=== PATIENT | female | born 1970 | race Two or more races ===

== ENCOUNTER 2018-04-11 18:16 | Emergency (ER) | payer BC, SELFPAY ==
[~2018-04-11] VITALS: Ht 152.4 cm; Wt 74.0 kg
[2018-04-11 19:11] LABS: BASOPHILS # (AUTO) 0.04 x10^3/uL (0-0.1); BASOPHILS % (AUTO) 0 % (0-1); EOSINOPHILS # (AUTO) 0.21 x10^3/uL (0-0.4); EOSINOPHILS % (AUTO) 2 % (1-7); LYMPHOCYTES # (AUTO) 2.88 x10^3/uL (1-3.4); LYMPHOCYTES % (AUTO) 29 % (22-44); MD NO; MEAN CORPUSCULAR HEMOGLOBIN 26.8 pg (27.0-34.8); MEAN CORPUSCULAR HGB CONC 32.3 g/dL (32.4-35.8); MEAN CORPUSCULAR VOLUME 82.9 fL (80-100); MEAN PLATELET VOLUME 8.1 fL (7.4-10.4); MONOCYTES # (AUTO) 0.73 x10^3/uL (0.2-0.8); MONOCYTES % (AUTO) 8 % (2-9); NEUTROPHILS # (AUTO) 5.94 x10^3/uL (1.8-6.8); NEUTROPHILS % (AUTO) 61 % (42-75); PLATELET COUNT 413 x10^3/uL (130-400); RED BLOOD COUNT 5.06 x10^6/uL (3.82-5.3); RED CELL DISTRIBUTION WIDTH 16.6 % (9.6-15.2)
[2018-04-11 19:12] LABS: HCG UR SG 1.026 (1.003-1.030); MICROSCOPIC AUTO
[2018-04-11 19:14] LABS: CULTURE INDICATED? YES
[2018-04-11 19:19] LABS: ALANINE AMINOTRANSFERASE 25 U/L (12-78); ALBUMIN 3.5 g/dL (3.4-5.0); ANION GAP 7 mmol/L (5-15); CALCIUM 8.8 mg/dL (8.5-10.1); CHLORIDE 106 mmol/L (98-107); CREATININE 0.75 mg/dL (0.55-1.02)
[2018-04-11 19:21] LABS: ALKALINE PHOSPHATASE 147 U/L (45-117); BILIRUBIN,TOTAL 0.3 mg/dL (0.2-1.0); TOTAL PROTEIN 8.1 g/dL (6.4-8.2)
[2018-04-11 20:52] VITALS: BP 161/79
== END 2018-04-11 20:53 | disposition home or self-care (01) ==
LOC: ED 19:37
DX: K29.70 Gastritis, unspecified, without bleeding (principal); N30.90 Cystitis, unspecified without hematuria; R51 Headache
CPT/HCPCS: 36415; 76700; 80053; 81001; 81025; 83690; 85025; 87086; 99285

== ENCOUNTER 2018-05-15 19:15 | Emergency (ER) | payer BC ==
[~2018-05-15] VITALS: Ht 152.4 cm; Wt 76.0 kg
[2018-05-15 19:24] VITALS: BP 175/94
[2018-05-15] MEDS ORDERED: OMEP-110 PO (19:54)
[2018-05-15] MEDS ORDERED: ONDA4TAB10 PO (19:54)
[2018-05-15] MEDS ORDERED: SUCR1TAB PO (19:54)
[2018-05-15 20:03] LABS: BASOPHILS # (AUTO) 0.04 x10^3/uL (0-0.1); BASOPHILS % (AUTO) 0 % (0-1); EOSINOPHILS # (AUTO) 0.23 x10^3/uL (0-0.4); EOSINOPHILS % (AUTO) 2 % (1-7); LYMPHOCYTES % (AUTO) 24 % (22-44); MD NO; MEAN CORPUSCULAR HEMOGLOBIN 27.4 pg (27.0-34.8); MEAN CORPUSCULAR HGB CONC 33.3 g/dL (32.4-35.8); MEAN CORPUSCULAR VOLUME 82.3 fL (80-100); MEAN PLATELET VOLUME 7.9 fL (7.4-10.4); MONOCYTES # (AUTO) 0.82 x10^3/uL (0.2-0.8); MONOCYTES % (AUTO) 8 % (2-9); NEUTROPHILS # (AUTO) 7.12 x10^3/uL (1.8-6.8); NEUTROPHILS % (AUTO) 66 % (42-75); PLATELET COUNT 400 x10^3/uL (130-400); RED BLOOD COUNT 4.79 x10^6/uL (3.82-5.3); RED CELL DISTRIBUTION WIDTH 17.2 % (9.6-15.2)
[2018-05-15 20:10] LABS: MICROSCOPIC AUTO
[2018-05-15] MEDS ORDERED: KETOROLAC 30 MG/1 ML ONE (20:10)
[2018-05-15 20:13] LABS: ALANINE AMINOTRANSFERASE 25 U/L (12-78); ALBUMIN 3.5 g/dL (3.4-5.0); ANION GAP 6 mmol/L (5-15); CALCIUM 8.6 mg/dL (8.5-10.1); CHLORIDE 106 mmol/L (98-107)
[2018-05-15 20:15] LABS: ALKALINE PHOSPHATASE 148 U/L (45-117); BILIRUBIN,TOTAL 0.2 mg/dL (0.2-1.0)
[2018-05-15 20:19] LABS: CULTURE INDICATED? NO
[2018-05-15] MEDS ORDERED: KETOROLAC 30 MG/1 ML IM ONE (20:30)
== END 2018-05-15 21:12 | disposition home or self-care (01) ==
LOC: ED 21:06
DX: R10.811 Right upper quadrant abdominal tenderness (principal); R10.813 Right lower quadrant abdominal tenderness; R11.0 Nausea
CPT/HCPCS: 36415; 74176; 80053; 81001; 83690; 85025; 96372; 99285; J1885

== ENCOUNTER → 2018-05-31 | Outpatient (CLI) | payer BC ==
[~2018-05-31] MED LIST: OMEP-110 PO; ONDA4TAB10 PO; SINCALIDE (KINEVAC) 5 MCG ONE; SUCR1TAB PO
== END | disposition home or self-care (01) ==
LOC: RAD 09:38
PROVIDERS: ATTEND Internal Medicine Gastroenterology
DX: R10.11 Right upper quadrant pain (principal); R11.2 Nausea with vomiting, unspecified; K59.00 Constipation, unspecified; Z79.1 Long term (current) use of non-steroidal anti-inflammatories (NSAID); Z91.010 Allergy to peanuts; Z91.018 Allergy to other foods; Z91.012 Allergy to eggs
CPT/HCPCS: 78227; A9537; J2805

== ENCOUNTER 2018-07-24 09:53 | Emergency (ER) | payer BC ==
[~2018-07-24] VITALS: Ht 152.4 cm; Wt 76.7 kg
[~2018-07-24 09:53] MED LIST changes: -SINCALIDE (KINEVAC) 5 MCG ONE
[2018-07-24 09:57] VITALS: BP 159/101
[2018-07-24] MEDS ORDERED: CETI10CA PO (10:19)
[2018-07-24] MEDS ORDERED: LACT1CAP35 PO (10:19)
[2018-07-24] MEDS ORDERED: MECLIZINE CHEWABLE 25 MG TAB ONE (10:25)
[2018-07-24] MEDS ORDERED: ONDANSETRON ODT 4 MG ONE ×2 (10:26→12:09)
[2018-07-24] MEDS ORDERED: ONDANSETRON ODT 4 MG PO ONE ×2 (10:30→12:30)
[2018-07-24] MEDS ORDERED: MECLIZINE CHEWABLE 25 MG TAB PO ONE (10:30)
[2018-07-24 10:45] LABS: BASOPHILS # (AUTO) 0.04 x10^3/uL (0-0.1); BASOPHILS % (AUTO) 1 % (0-1); EOSINOPHILS # (AUTO) 0.16 x10^3/uL (0-0.4); EOSINOPHILS % (AUTO) 2 % (1-7); LYMPHOCYTES # (AUTO) 1.56 x10^3/uL (1-3.4); LYMPHOCYTES % (AUTO) 23 % (22-44); MD NO; MEAN CORPUSCULAR HEMOGLOBIN 26.8 pg (27.0-34.8); MEAN CORPUSCULAR HGB CONC 32.9 g/dL (32.4-35.8); MEAN CORPUSCULAR VOLUME 81.7 fL (80-100); MEAN PLATELET VOLUME 7.8 fL (7.4-10.4); MONOCYTES # (AUTO) 0.32 x10^3/uL (0.2-0.8); MONOCYTES % (AUTO) 5 % (2-9); NEUTROPHILS # (AUTO) 4.77 x10^3/uL (1.8-6.8); NEUTROPHILS % (AUTO) 70 % (42-75); PLATELET COUNT 375 x10^3/uL (130-400); RED BLOOD COUNT 4.75 x10^6/uL (3.82-5.3); RED CELL DISTRIBUTION WIDTH 15.9 % (9.6-15.2)
[2018-07-24 10:57] LABS: ALANINE AMINOTRANSFERASE 25 U/L (12-78); ALBUMIN 3.3 g/dL (3.4-5.0); ANION GAP 8 mmol/L (5-15); CALCIUM 7.9 mg/dL (8.5-10.1); CHLORIDE 107 mmol/L (98-107)
[2018-07-24 11:02] LABS: ALKALINE PHOSPHATASE 141 U/L (45-117); BILIRUBIN,TOTAL 0.1 mg/dL (0.2-1.0); CREATININE 0.71 mg/dL (0.55-1.02); TOTAL PROTEIN 7.9 g/dL (6.4-8.2)
[2018-07-24 11:12] LABS: MICROSCOPIC AUTO
[2018-07-24 11:15] LABS: CULTURE INDICATED? YES
== END 2018-07-24 12:03 | disposition home or self-care (01) ==
LOC: ED 10:30
DX: R42 Dizziness and giddiness (principal); K52.9 Noninfective gastroenteritis and colitis, unspecified; K82.9 Disease of gallbladder, unspecified
CPT/HCPCS: 36415; 80053; 81001; 83690; 84703; 85025; 87077; 87086; 93005; 99285; Q0162; 87186

== ENCOUNTER 2018-09-13 07:27 | Day surgery (SDC) | payer BC ==
[~2018-09-13] VITALS: Ht 152.4 cm; Wt 75.9 kg
[~2018-09-13 07:27] MED LIST changes: +BUPIVACAINE/PF-EPI 0.5% 1:200K ONE; +CETI10CA PO; +LACT1CAP35 PO
[2018-09-13 07:48] VITALS: BP 148/89
[2018-09-13] MEDS ORDERED: LACTATED RINGERS 1,000 ML IV SCH ×2 (07:53→10:36)
[2018-09-13] MEDS ORDERED: OMEP-110 PO (07:54)
[2018-09-13] MEDS ORDERED: ACETAMINOPHEN 500 MG TABLET PO STA (07:55)
[2018-09-13] MEDS ORDERED: GABAPENTIN 300 MG CAPSULE PO STA (07:55)
[2018-09-13] MEDS ORDERED: LIDOCAINE-MPF 1%, 2ML INFIL ONE (08:00)
[2018-09-13] MEDS ORDERED: NEOSTIGMINE 1 MG/ML, 10ML ONE (08:35)
[2018-09-13] MEDS ORDERED: MIDAZOLAM 1 MG/ML, 2ML ONE (08:35)
[2018-09-13] MEDS ORDERED: PROPOFOL 10 MG/ML, 20ML ONE (08:35)
[2018-09-13] MEDS ORDERED: FENTANYL PF 250 MCG/5ML ONE (08:35)
[2018-09-13] MEDS ORDERED: ROCURONIUM 10MG/ML,5ML ONE (08:35)
[2018-09-13] MEDS ORDERED: ONDANSETRON 2MG/ML, 2ML ONE (08:35)
[2018-09-13] MEDS ORDERED: GLYCOPYRROLATE 0.2MG/1ML, 5ML ONE (08:35)
[2018-09-13] MEDS ORDERED: DEXAMETHASONE 4 MG/ML, 1ML ONE (08:35)
[2018-09-13 08:40] LABS: HCG UR SG 1.022 (1.003-1.030)
[2018-09-13] MEDS ORDERED: CEFOTETAN PMX 2GM/50ML 50 ML ONE (09:56)
[2018-09-13] MEDS ORDERED: KETOROLAC 30 MG/1 ML ONE ×2 (09:58→10:25)
[2018-09-13] MEDS ORDERED: FENTANYL PF 100 MCG/2ML IV PRN (10:00)
[2018-09-13] MEDS ORDERED: hydrALAzine 20 MG/ML, 1ML IV PRN (10:00)
[2018-09-13] MEDS ORDERED: PROMETHAZINE 12.5 MG SUPP PR PRN (10:00)
[2018-09-13] MEDS ORDERED: LABETALOL 5MG/ML, 20ML IV PRN (10:00)
[2018-09-13] MEDS ORDERED: MEPERIDINE/PF 25MG/0.5ML IVPush PRN (10:00)
[2018-09-13] MEDS ORDERED: OXYcodone 5 MG/5 ML ORAL.SOL UDC PO PRN (10:00)
[2018-09-13] MEDS ORDERED: MORPHINE SULFATE 4 MG/ML, 1ML IVPush PRN (10:00)
[2018-09-13] MEDS ORDERED: ONDANSETRON 2MG/ML, 2ML IV PRN (10:00)
[2018-09-13] MEDS ORDERED: PROMETHAZINE 25 MG/ML, 1ML IV PRN (10:00)
[2018-09-13] MEDS ORDERED: ONDANSETRON ODT 8 MG PO PRN (10:00)
[2018-09-13] MEDS ORDERED: PROMETHAZINE 25 MG/ML, 1ML IM PRN ×2 (10:00)
[2018-09-13] MEDS ORDERED: PROMETHAZINE 25 MG SUPP PR PRN (10:00)
[2018-09-13] MEDS ORDERED: HYDROcodone/APAP 5/325 TABLET PO PRN (11:00)
[2018-09-13] MEDS ORDERED: morphine SULFATE 10 MG/ML, 1ML IVPush PRN (11:00)
[2018-09-13] MEDS ORDERED: ONDANSETRON 2MG/ML, 2ML IVPush PRN (11:00)
[2018-09-13] MEDS ORDERED: SUGAMMADEX 200 MG/2 ML IVPush ONE (11:02)
[2018-09-13] MEDS ORDERED: HYDROmorphone 2 MG/ML, 1ML ONE (11:29)
[2018-09-13] MEDS: HYDROmorphone 1 MG/ML, 1ML IV PRN ×2 (11:31→11:44)
== END 2018-09-13 16:15 | disposition home or self-care (01) ==
LOC: OUT 07:27 → UNDOADMOB 10:36 → ORIP 10:36 → OUT 16:15
PROVIDERS: ATTEND Thoracic Surgery (Cardiothoracic Vascular Surgery)
DX: K80.10 Calculus of gallbladder with chronic cholecystitis without obstruction (principal); Z79.899 Other long term (current) drug therapy; Z90.710 Acquired absence of both cervix and uterus; Z79.1 Long term (current) use of non-steroidal anti-inflammatories (NSAID); Z98.890 Other specified postprocedural states
CPT/HCPCS: 47562; 81025; 88304; J1100; J1170; J1885; J2250; J2405; J2704; J2710; J3010; J3490; J7120

== ENCOUNTER 2019-02-22 12:02 | Outpatient (CLI) | payer BC ==
[~2019-02-22 12:02] MED LIST changes: -BUPIVACAINE/PF-EPI 0.5% 1:200K ONE
== END 2019-02-22 23:59 | disposition home or self-care (01) ==
LOC: STAR 12:02
PROVIDERS: ATTEND Obstetrics & Gynecology Female Pelvic Medicine and Reconstructive Surgery
DX: Z02.9 Encounter for administrative examinations, unspecified (principal)

== ENCOUNTER 2019-02-26 05:44 | Day surgery (SDC) | payer BC ==
[2019-02-22 12:30] VITALS: BP 156/91
[~2019-02-26] VITALS: Ht 152.4 cm; Wt 75.0 kg
[2019-02-26] MEDS ORDERED: LACTATED RINGERS 1,000 ML IV SCH (06:32)
[2019-02-26 06:37] VITALS: BP 156/91
[2019-02-26 06:43] LABS: HCG UR SG 1.021 (1.003-1.030)
[2019-02-26] MEDS ORDERED: BUPIVACAINE/PF 0.25% ONE (06:45)
[2019-02-26] MEDS ORDERED: NEOMY/POLYMYXIN B GU IRR. 1 ML ONE (06:46)
[2019-02-26] MEDS ORDERED: EPINEPHRINE 1 MG/ML, 1ML ONE (06:46)
[2019-02-26] MEDS ORDERED: GABAPENTIN 300 MG CAPSULE PO ONE (07:00)
[2019-02-26] MEDS ORDERED: DIAZEPAM 5 MG TABLET PO ONE (07:00)
[2019-02-26] MEDS ORDERED: ACETAMINOPHEN 500 MG TABLET PO ONE (07:00)
[2019-02-26] MEDS ORDERED: SCOPOLAMINE PATCH, 1.5MG PATCH.TD72 TD ONE (07:00)
[2019-02-26] MEDS ORDERED: FENTANYL PF 250 MCG/5ML ONE (07:08)
[2019-02-26] MEDS ORDERED: MIDAZOLAM 1 MG/ML, 2ML ONE (07:08)
[2019-02-26] MEDS ORDERED: PROPOFOL 10 MG/ML, 20ML ONE (07:10)
[2019-02-26] MEDS ORDERED: ROCURONIUM 10MG/ML,5ML ONE (07:10)
[2019-02-26] MEDS ORDERED: ONDANSETRON 2MG/ML, 2ML ONE ×2 (07:10)
[2019-02-26] MEDS ORDERED: SUCCINYLCHOLINE 20 MG/ML, 10ML ONE (07:10)
[2019-02-26] MEDS ORDERED: DEXAMETHASONE 4 MG/ML, 1ML ONE ×2 (07:10)
[2019-02-26] MEDS ORDERED: LIDOCAINE-MPF 2% ,5ML ONE (07:10)
[2019-02-26] MEDS ORDERED: KETOROLAC 30 MG/1 ML ONE (07:31)
[2019-02-26] MEDS ORDERED: CEFAZOLIN 1,000 MG ONE (07:31)
[2019-02-26] MEDS ORDERED: EPHEDRINE 50 MG/ML, 1ML IVPush PRN (08:00)
[2019-02-26] MEDS ORDERED: ONDANSETRON ODT 8 MG PO PRN (08:00)
[2019-02-26] MEDS ORDERED: HYDROmorphone 2 MG/ML, 1ML IVPush PRN (08:00)
[2019-02-26] MEDS ORDERED: FENTANYL PF 100 MCG/2ML IV PRN (08:00)
[2019-02-26] MEDS ORDERED: ONDANSETRON 2MG/ML, 2ML IV PRN (08:00)
[2019-02-26] MEDS ORDERED: PROMETHAZINE 25 MG/ML, 1ML IV PRN (08:00)
[2019-02-26] MEDS ORDERED: LORazepam 2 MG/ML, 1ML IVPush PRN (08:00)
[2019-02-26] MEDS ORDERED: MORPHINE SULFATE 4 MG/ML, 1ML IVPush PRN (08:00)
[2019-02-26] MEDS ORDERED: MEPERIDINE/PF 25MG/0.5ML IVPush PRN (08:00)
[2019-02-26] MEDS ORDERED: ALBUTEROL SULFATE 2.5 MG/3 ML NPPB PRN (08:00)
[2019-02-26] MEDS ORDERED: MIDAZOLAM 1 MG/ML, 2ML IV PRN (08:00)
[2019-02-26] MEDS ORDERED: LABETALOL 5MG/ML, 20ML IV PRN (08:00)
[2019-02-26] MEDS ORDERED: PROMETHAZINE 12.5 MG SUPP PR PRN (08:00)
[2019-02-26] MEDS ORDERED: HALOPERIDOL 5 MG/ML IV PRN (08:00)
[2019-02-26] MEDS ORDERED: hydrALAzine 20 MG/ML, 1ML IV PRN (08:00)
[2019-02-26] MEDS ORDERED: OXYcodone 5 MG/5 ML ORAL.SOL UDC PO PRN (08:00)
[2019-02-26] MEDS ORDERED: OXYcodone 5 MG/5 ML ORAL.SOL UDC ONE (09:55)
[2019-02-26] MEDS ORDERED: hydrALAzine 20 MG/ML, 1ML ONE (09:55)
[2019-02-26] MEDS ORDERED: MEPERIDINE/PF 25MG/ML,1ML ONE (09:55)
[2019-02-26] MEDS ORDERED: HYDROmorphone 1 MG/ML, 1ML VIAL ONE (11:36)
[2019-02-26] MEDS ORDERED: HYDROcodone/APAP 5/325 TABLET ONE (16:30)
== END 2019-02-26 18:00 | disposition home or self-care (01) ==
LOC: OUT 05:44
PROVIDERS: ATTEND Obstetrics & Gynecology Female Pelvic Medicine and Reconstructive Surgery
DX: D25.0 Submucous leiomyoma of uterus (principal); N84.0 Polyp of corpus uteri; N92.1 Excessive and frequent menstruation with irregular cycle; N94.6 Dysmenorrhea, unspecified; N94.10 Unspecified dyspareunia; N81.89 Other female genital prolapse; N39.3 Stress incontinence (female) (male); N32.81 Overactive bladder; Z90.49 Acquired absence of other specified parts of digestive tract
CPT/HCPCS: 57265; 57282; 57288; 58552; 81025; 88307; C1771; J0171; J0330; J0360; J0690; J1100; J1885; J2175; J2250; J2405; J2704; J3010; J3490; J7120